=== PATIENT | female | born 1990 | race Caucasian/White ===

== ENCOUNTER 2016-11-01 23:56 | Emergency (ER) | payer BC ==
[~2016-11-01] VITALS: Ht 175.3 cm; Wt 64.5 kg
[2016-11-02] MEDS ORDERED: XANAX0.5 MG PO (00:20)
[2016-11-02] MEDS ORDERED: LEXAPRO10 MG PO (00:35)
[2016-11-02 00:42] VITALS: BP 142/91
== END 2016-11-02 00:43 | disposition home or self-care (01) ==
LOC: EME 23:56
DX: F41.8 Other specified anxiety disorders (principal)
CPT/HCPCS: 99281; 99283

== ENCOUNTER 2017-04-02 12:51 | Emergency (ER) | payer BC ==
[~2017-04-02] VITALS: Ht 175.3 cm; Wt 65.0 kg
[~2017-04-02 12:51] MED LIST: LEXAPRO10 MG PO; XANAX0.5 MG PO
[2017-04-02 14:10] LABS: HEMATOCRIT 41.4 % (36.0-46.0); MCH 29.6 PG (29.0-34.0); MCHC 32.9 G/DL (30.0-36.0); MCV 90.2 FL (83-99); MEAN PLAT.VOLUME 9.9 uM^3 (9.5-12.4); PLATELET COUNT 240 K/uL (156-360); RBC DIS.WIDTH-CV 12.4 % (11.8-14.6); RBC DIS.WIDTH-SD 40.4 % (39-53); RED BLOOD COUNT 4.59 M/uL (3.80-5.20); WHITE BLOOD COUNT 8.5 K/uL (4.1-10.2)
[2017-04-02 14:24] LABS: CHLORIDE 108 mEq/L (99-109); POTASSIUM 4.5 mEq/L (3.7-5.4); SODIUM 139 mEq/L (136-147)
[2017-04-02 14:26] LABS: GLUCOSE 89 mg/dL (70-99)
[2017-04-02 14:28] LABS: ANION GAP 6 MEQ/L (2-14); TOTAL BILIRUBIN 0.2 mg/dL (0.0-1.0)
[2017-04-02 14:29] LABS: ADD MIUA? NO; BILIRUBIN NEGATIVE; BLOOD NEGATIVE; COLOR STRAW ((YELLOW)); GLUCOSE (STRIP) NEGATIVE; KETONES NEGATIVE; LEUKOCYTES NEGATIVE; NITRITE NEGATIVE; PROTEIN (STRIP) NEGATIVE; SPECIFIC GRAVITY 1.016 (1.000-1.030); UCUL ADDED? NO; UROBILINOGEN 0.2 MG/DL (0.2-1.0)
[2017-04-02 14:30] LABS: ALKALINE PHOSPHATASE 58 IU/L (3-129); GFR ESTIMATE (CALCULATED) > 59 mL/min/
[2017-04-02 14:31] LABS: UREA NITROGEN (BUN) 10 mg/dL (9-23)
[2017-04-02 14:40] LABS: QUANTITATIVE HCG < 4.0 MIU/ML
[2017-04-02] MEDS ORDERED: CITRATE OF MAG296 ML PO (15:55)
[2017-04-02 16:05] VITALS: BP 154/81
== END 2017-04-02 16:06 | disposition home or self-care (01) ==
LOC: EME 12:51
DX: R10.9 Unspecified abdominal pain (principal); K59.00 Constipation, unspecified
CPT/HCPCS: 74000; 80053; 81003; 84702; 85027; 99281; 99283

== ENCOUNTER → 2017-12-18 | Outpatient (CLI) | payer OTHER ==
[~2017-12-18] MED LIST changes: +CITRATE OF MAG296 ML PO
== END | disposition home or self-care (01) ==
LOC: CT 17:12
DX: R10.32 Left lower quadrant pain (principal)
CPT/HCPCS: 74177

== ENCOUNTER 2018-03-02 00:36 | Emergency (ER) | payer OTHER ==
[~2018-03-02] VITALS: Ht 175.3 cm; Wt 67.6 kg
[2018-03-02 02:04] LABS: HEMATOCRIT 37.2 % (36.0-46.0); MCH 30.9 PG (29.0-34.0); MCHC 34.9 G/DL (30.0-36.0); MCV 88.4 FL (83-99); PLATELET COUNT 305 K/uL (156-360); RBC DIS.WIDTH-CV 12.1 % (11.8-14.6); RBC DIS.WIDTH-SD 38.9 % (39-53); RED BLOOD COUNT 4.21 M/uL (3.80-5.20); WHITE BLOOD COUNT 14.4 K/uL (4.1-10.2)
[2018-03-02 02:14] LABS: ALBUMIN 4.3 g/dL (3.2-4.8); CHLORIDE 104 mEq/L (99-109); POTASSIUM 3.8 mEq/L (3.7-5.4); SODIUM 137 mEq/L (136-147)
[2018-03-02 02:16] LABS: GLUCOSE 117 mg/dL (70-99)
[2018-03-02 02:17] LABS: TOTAL PROTEIN 7.4 g/dL (6.4-8.3)
[2018-03-02 02:18] LABS: TOTAL BILIRUBIN 0.5 mg/dL (0.0-1.0)
[2018-03-02 02:20] LABS: ALKALINE PHOSPHATASE 56 IU/L (3-129); CREATININE 0.7 mg/dL (0.6-1.3); GFR ESTIMATE (CALCULATED) > 59 mL/min/
[2018-03-02 02:21] LABS: UREA NITROGEN (BUN) 7 mg/dL (9-23)
[2018-03-02 02:22] LABS: AST (GOT) 13 IU/L (2-34)
[2018-03-02 02:23] LABS: ALT (GPT) 12 IU/L (3-49); LIPASE 10 U/L (1.0-51.0)
[2018-03-02] MEDS ORDERED: ATIVAN0.5 MG PO (07:52)
[2018-03-02] MEDS ORDERED: ZOFRAN4 MG PO (07:52)
[2018-03-02] MEDS ORDERED: XANAX1 MG PO (09:16)
[2018-03-02 09:56] VITALS: BP 118/73
== END 2018-03-02 09:55 | disposition home or self-care (01) ==
LOC: EME 00:36
PROVIDERS: Emergency Medicine
DX: O99.341 Other mental disorders complicating pregnancy, first trimester (principal); F41.9 Anxiety disorder, unspecified; F32.9 Major depressive disorder, single episode, unspecified; F41.0 Panic disorder [episodic paroxysmal anxiety]; Z3A.01 Less than 8 weeks gestation of pregnancy; Z87.891 Personal history of nicotine dependence
CPT/HCPCS: 80053; 83690; 85027; 90839; 99281; 99284; J0780; J1200; J2060; J2405; J7030

== ENCOUNTER 2018-03-20 19:12 | Emergency (ER) | payer OTHER ==
[~2018-03-20] VITALS: Ht 175.3 cm; Wt 68.8 kg
[~2018-03-20 19:12] MED LIST changes: +ATIVAN0.5 MG PO; +XANAX1 MG PO; +ZOFRAN4 MG PO
[2018-03-20] MEDS ORDERED: VISTARIL50 MG PO (20:55)
[2018-03-20 21:16] VITALS: BP 146/91
== END 2018-03-20 21:17 | disposition home or self-care (01) ==
LOC: EME 19:12
DX: O99.341 Other mental disorders complicating pregnancy, first trimester (principal); F41.9 Anxiety disorder, unspecified; R11.0 Nausea; O99.331 Smoking (tobacco) complicating pregnancy, first trimester; F17.200 Nicotine dependence, unspecified, uncomplicated; Z3A.09 9 weeks gestation of pregnancy
CPT/HCPCS: 99281; 99284